=== PATIENT | female | born 1965 | race Two or more races ===

== ENCOUNTER 2016-08-23 21:48 | Emergency (ER) | payer BC ==
[~2016-08-23] VITALS: Ht 162.6 cm; Wt 87.1 kg
[2016-08-23] MEDS ORDERED: SODIUM CHLORIDE 0.9% 1,000 ML IV ONE (23:15)
[2016-08-23] MEDS ORDERED: methylPREDNISolone SOD SUCC 125 MG/2 ML VL IV ONE (23:15)
[2016-08-24 01:37] VITALS: BP 112/74
== END 2016-08-24 01:56 | disposition home or self-care (01) ==
LOC: EDUNIT# 21:48 → EDAGE 21:48 → ER 21:55
DX: T78.3XXA Angioneurotic edema, initial encounter (principal); T78.40XA Allergy, unspecified, initial encounter; R51 Headache; E11.9 Type 2 diabetes mellitus without complications; F17.210 Nicotine dependence, cigarettes, uncomplicated; Z88.6 Allergy status to analgesic agent
CPT/HCPCS: 93005; 96361; 96374; 99284; J2930; J7030

== ENCOUNTER 2016-08-27 19:51 | Emergency (ER) | payer BC ==
[~2016-08-27] VITALS: Ht 160 cm; Wt 87.5 kg
[2016-08-27 20:24] VITALS: BP 117/43
[2016-08-27 21:16] LABS: DEFINITIVE VIEW TRANSMISSION; Hematocrit 37.7 % (36.0-46.0); Hemoglobin 11.6 g/dL (12.2-16.2); Mean Corpuscular Hemoglobin 24.1 pg (28.0-32.0); Mean Corpuscular Hgb Conc. 30.9 g/dL (32.0-36.0); Mean Corpuscular Volume 78.2 fL (80.0-100.0); Mean Platelet Volume 10.1 fL (7.4-10.4); Platelet Count (auto) 229 10^3/uL (140-450); Red Cell Distribution Width 16.2 % (11.6-16.0); White Blood Cell 3.4 10^3/uL (4.4-10.8)
[2016-08-27 21:32] LABS: Albumin 3.5 g/dL (3.4-5.0); Anion Gap 8 (5-15); Aspartate Aminotransferase 14 U/L (15-37); BUN/Creatinine Ratio 16.7; Blood Urea Nitrogen 11 mg/dL (7-18); Calcium 8.3 mg/dL (8.5-10.1); Carbon Dioxide 28 mmol/L (21-32); Chloride 106 mmol/L (98-107); GFR African American 121 mL/min; GFR Non-African American 100 mL/min; Glucose 136 mg/dL (74-106); INR 1.03 (0.9-1.15); Partial Thromboplastin Time 26.5 sec (22.64-33.71); Potassium 3.4 mmol/L (3.5-5.1); Prothrombin Time 10.6 sec (9.37-12.3); Sodium 142 mmol/L (136-145)
[2016-08-27 21:34] LABS: Alkaline Phosphatase 103 U/L (45-117); Bilirubin, Total < 0.1 mg/dL (0.2-1.0); Total Protein 6.5 g/dL (6.4-8.2)
[2016-08-27 21:43] LABS: B-Type Natriuretic Peptide 5.98 pg/mL (0-100)
[2016-08-27 22:07] LABS: Temperature: 22.2 C (20.0-25.0)
[2016-08-27 22:55] LABS: Metamyelocytes % 0; Myelocytes % 0; Promyelocytes % 0; Reactive Lymphocytes 0
[2016-08-28 01:49] LABS: Ovalocytes FEW; Platelet Estimate Adequate
[2016-08-28 01:50] LABS: Anisocytosis Slight; Microcytosis Slight
== END 2016-08-28 01:53 | disposition left against medical advice (07) ==
LOC: ER 19:55
DX: R20.0 Anesthesia of skin (principal); R53.1 Weakness; R55 Syncope and collapse; Z53.21 Procedure and treatment not carried out due to patient leaving prior to being seen by health care provider
CPT/HCPCS: 36415; 70450; 71010; 80053; 82962; 83880; 84484; 85007; 85027; 85610; 85730; 93005